=== PATIENT | male | born 1990 | race Caucasian/White ===

== ENCOUNTER 2025-05-07 15:37 | Outpatient (CLI) | payer OTHER, SELFPAY ==
--- NOTE | ~2025-05-07 | MR_ITS ---
EXAMINATION: MR cervical spine wo con DATE: 05/07/2025 16:24 INDICATION: Pain between shoulders. Neck pain. No history of trauma. TECHNIQUE: Magnetic resonance imaging (MRI) of the cervical spine was performed without intravenous contrast. Sequences included sagittal T2-weighted FSE, sagittal T2-weighted FS FSE, sagittal T1-weighted FSE, axial MERGE, and axial T2-weighted FSE. COMPARISON: None FINDINGS: No acute bony lesions are cervical vertebrae. Strictures of the foramen magnum are normal in the sagittal view. At C2-3 level, no focal disc lesions. At C3-4 level, mild bulging annulus on the right side at the foraminal level causing mild right foraminal narrowing. At C4-5 level, degenerative disc changes with asymmetric bulging annulus on the right side causing moderately significant compromise of right neural foramen. At C5-6 level, broad disc protrusion is causing mild compromise of thecal sac and mild to moderate compromise of both lateral recess. AP diameter of the thecal sac in the midline measures 10 mm. Right C6-7 level, bulging annulus causing mild right foraminal narrowing. C7-T1 disc is normal. Cervical spinal cord shows no focal lesions. Paravertebral soft tissues are unremarkable. IMPRESSION: 1. No acute or focal bone changes of cervical vertebrae. 2.At C5-6 level, broad disc protrusion is causing mild compromise of thecal sac and mild to moderate compromise of both lateral recess. AP diameter of the thecal sac in the midline measures 10 mm. 3. Findings at other disc levels are described above in detail. 4. No focal lesions of cervical spinal cord. Reviewed, dictated and finalized at location T. IT[employer] APPR[employer]ISER IMPRESSION: 1. No acute or focal bone changes of cervical vertebrae. 2.At C5-6 level, broad disc protrusion is causing mild compromise of thecal sac and mild to moderate compromise of both lateral recess. AP diameter of the the seth sac in the midline measures 10 mm. 3. Findings at other disc levels are described above in detail. 4. No focal lesions of cervical spinal cord.
--- NOTE | ~2025-05-07 | MR_ITS ---
EXAMINATION: MR thoracic spine wo con DATE: 05/07/2025 16:30 INDICATION: Upper back pain between shoulder blades. No history of trauma. TECHNIQUE: Magnetic resonance imaging (MRI) of the thoracic spine was performed without intravenous contrast. Sagittal localizer T1-weighted FSE of the cervical spine was obtained. Thoracic spine sequences included sagittal T2-weighted FSE, sagittal T1-weighted FSE, sagittal T2-weighted FS FSE, and axial T2-weighted FSE. COMPARISON: None FINDINGS: No acute or focal bone changes are thoracic vertebrae. No evidence of thoracic disc herniation or spinal stenosis. No significant foraminal stenosis at the thoracic level. Thoracic spinal cord shows no focal lesions. Soft tissues are unremarkable. IMPRESSION: 1. Reviewed, dictated and finalized at location T. [employer] IMPRESSION: 1.
== END 2025-05-07 15:38 | disposition home or self-care (01) ==
PROVIDERS: PCP Physician Assistant; Visit Provider Physician Assistant
DX: M50.222 Other cervical disc displacement at C5-C6 level (principal); M48.02 Spinal stenosis, cervical region; M47.892 Other spondylosis, cervical region
CPT/HCPCS: 72141; 72146